=== PATIENT | male | born 1990 | race Caucasian/White ===

== ENCOUNTER → 2017-12-08 | Outpatient (CLI) | payer OTHER ==
[~2017-12-08] MED LIST: BUPIVACAINE MPF 0.25% 10 ML VIAL. ONE; IV RINGERS SOLUTION,LACTATED 1,000 ML IV SCH; LIDOCAINE 1% PF 30 ML VIAL. ONE; MIDAZOLAM HCL PF 2 MG/2 ML VIAL. ONE; TEST200V3 IM; methylPREDNISolone ACETATE 40 MG/ML VIAL. ONE
[2017-12-08 09:35] VITALS: BP 127/64
== END | disposition home or self-care (01) ==
LOC: SURG 07:34
PROVIDERS: ATTEND Anesthesiology Pain Medicine
DX: M47.816 Spondylosis without myelopathy or radiculopathy, lumbar region (principal); Z72.89 Other problems related to lifestyle; Z87.39 Personal history of other diseases of the musculoskeletal system and connective tissue
CPT/HCPCS: 64635; 64636; J1030; J2001; J2250; J3010; J3490; J7120; 99152; 99153